=== PATIENT | male | born 1995 ===

== ENCOUNTER 2020-04-20 12:01 | Emergency (ER) | payer SELFPAY ==
[2020-04-22 13:19] LABS: Alanine Aminotransferase 34 units/L (7-56); BUN/Creatinine Ratio 10; Blood Urea Nitrogen 12 mg/dL (9-20); Calcium 9.7 mg/dL (8.4-10.2); Creatine Kinase MB 10.1 ng/mL (0.0-4.0)
[2020-04-22 13:20] LABS: Albumin 4.3 g/dL (3.9-5)
== END 2020-04-20 16:00 | disposition left against medical advice (07) ==
LOC: ED 12:01
DX: T50.901A Poisoning by unspecified drugs, medicaments and biological substances, accidental (unintentional), initial encounter (principal); Z53.21 Procedure and treatment not carried out due to patient leaving prior to being seen by health care provider
CPT/HCPCS: 36415; 80053; 80320; 82553; 84484; G0480